=== PATIENT | male | born 1975 | race Caucasian/White ===

== ENCOUNTER 2016-10-08 19:31 | Emergency (ER) | payer OTHER ==
[~2016-10-08] VITALS: Ht 165.1 cm; Wt 65.8 kg
[2016-10-08 19:35] VITALS: BP 119/76; PULSE 61; RESP 20; TEMP 97.5; O2SAT 97
--- NOTE | 2016-10-08 19:40 | NUR ---
Patient to ER [facility] for evaluation.
--- NOTE | 2016-10-08 19:45 | NUR ---
ER at bedside examining patient.
--- NOTE | 2016-10-08 19:45 | NUR ---
PT IN WAITING ROOM WITH C/O SORE THOAT AND COLD SYMPTOMS.DR SERRANO AWARE
[2016-10-08 20:50] VITALS: BP 116/76; PULSE 72; RESP 20; TEMP 97.5; O2SAT 97
--- NOTE | 2016-10-08 20:50 | NUR ---
Patient given written and verbal discharge instructions and verbalizes understanding. ER MD discussed with patient the results and treatment provided. Given copies of tests performed in ER. Patient in stable condition. ID arm band removed. Rx of AZITROMYCIN, PROMETHAZINE,PREDNISONE, given. Patient educated on pain management and to follow up with PMD. Pain Scale 0/10. Opportunity for questions provided and answered.
== END 2016-10-08 20:50 | disposition home or self-care (01) ==
LOC: SED 19:31
DX: J40 Bronchitis, not specified as acute or chronic (principal)
CPT/HCPCS: 99283

== ENCOUNTER 2017-03-21 05:37 | Emergency (ER) | payer OTHER ==
[~2017-03-21] VITALS: Ht 165.1 cm; Wt 56.7 kg
[2017-03-21 05:52] VITALS: BP_SYST 125
--- NOTE | 2017-03-21 05:57 | NUR ---
Placed in room 06 . Side rails up. Report given to RD Jacob.
--- NOTE | 2017-03-21 06:00 | NUR ---
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 Pt is in no distress. AAOx4. Will continue to monitor.
--- NOTE | 2017-03-21 06:05 | NUR ---
ESTELITA Allison at bedside examining patient.
[2017-03-21 06:08] VITALS: BP_SYST 125
--- NOTE | 2017-03-21 06:08 | NUR ---
Patient given verbal discharge instructions and verbalizes understanding. Pt refused to take written discharge instructions. ER MD discussed with patient the results and treatment provided. Patient in stable condition. ID arm band removed. Patient educated on pain management and to follow up with PMD. Pain Scale 0/10. Opportunity for questions provided and answered.
== END 2017-03-21 06:08 | disposition home or self-care (01) ==
LOC: SED 05:37
DX: F15.10 Other stimulant abuse, uncomplicated (principal); J45.909 Unspecified asthma, uncomplicated
CPT/HCPCS: 99281

== ENCOUNTER 2017-06-02 16:51 | Emergency (ER) | payer OTHER ==
[~2017-06-02] VITALS: Ht 165.1 cm; Wt 70.3 kg
[2017-06-02 16:56] VITALS: BP_SYST 166
[2017-06-02] MEDS ORDERED: HYDROcodone/ACETAMIN 7.5-325 MG TAB PO ONE ×2 (17:15→17:45)
[2017-06-02 18:25] VITALS: BP_SYST 166
== END 2017-06-02 18:25 | disposition home or self-care (01) ==
LOC: SED 16:51
DX: S86.911A Strain of unspecified muscle(s) and tendon(s) at lower leg level, right leg, initial encounter (principal); J45.909 Unspecified asthma, uncomplicated; R03.0 Elevated blood-pressure reading, without diagnosis of hypertension; W19.XXXA Unspecified fall, initial encounter; Y93.89 Activity, other specified; Y92.89 Other specified places as the place of occurrence of the external cause; Y99.8 Other external cause status
CPT/HCPCS: 73564; 73590-TC; 99284